=== PATIENT | male | born 1950 | race Caucasian/White ===

== ENCOUNTER 2016-11-14 00:01 | Outpatient (RCR) | payer MEDICARE, MEDICAID, SELFPAY ==
[2013-07-26 10:05] VITALS: BP 118/82
[~2016-11-14 00:01] MED LIST: ALBU8HFA IH; AMIT25TA9 PO; CLON.5 PO; CLON1 PO; CLON1TAB4 PO; DOCU250C14 PO; DOCU250C91 PO; ESCI10TA PO; ESCI20TA PO; ESOM40CA PO; ESZO3 PO; FAMO-136 PO; FENO145T PO; IBUP-2070 PO; LEVO100T13 PO; LEVO125T4 PO; LEVO50TA4 PO; LITH20CA PO; LITH300C3 PO; LITH300T4 PO; LITH600C PO; LORA10TA7 PO; LURA40 PO; METAMUCIL1 PKT PO; METO25XL PO; MOM30 PO; MOME17N NASAL; NEOM1PAC2 TP; NEOM28.36 TP; OMEP20CA10 PO; PANT40TA25 PO; PSYL1PAC11 PO; PSYL3.4P5 PO; QUET100T PO; QUET300T2 PO; RISP1 PO; RISP2 PO; SIMV-260 PO; SUMA25TA9 PO; TEMA15CA5 PO; TRAZ-144 PO; VIST50 PO; ZOLP10TA7 PO; [UNRECOGNIZED DRUG - CODE] PO
== END 2016-12-13 | disposition home or self-care (01) ==
LOC: IOPBV 00:01
DX: F25.1 Schizoaffective disorder, depressive type (principal); E03.9 Hypothyroidism, unspecified; E78.5 Hyperlipidemia, unspecified; I10 Essential (primary) hypertension; J45.909 Unspecified asthma, uncomplicated; K21.9 Gastro-esophageal reflux disease without esophagitis; K59.00 Constipation, unspecified; F32.9 Major depressive disorder, single episode, unspecified; F41.9 Anxiety disorder, unspecified; F17.210 Nicotine dependence, cigarettes, uncomplicated; Z72.89 Other problems related to lifestyle
CPT/HCPCS: 90853